=== PATIENT | male | born 1965 | race Caucasian/White ===

== ENCOUNTER 2019-07-11 07:07 | Day surgery (SDC) | payer BC ==
[2019-07-11] MEDS ORDERED: PROPOFOL 10 MG/ML VIAL IV ONE (07:08)
[2019-07-11] MEDS ORDERED: LIDOCAINE 2% MDV (20MG/ML) 20ML VIAL IV ONE (07:08)
--- NOTE | 2019-07-22 14:01 | Operative Note ---
DATE OF SERVICE: 07/11/2019. DATE OF SURGERY: 07/11/2019. REQUESTING PROVIDER: Jaiden Sky DO. SURGEON: Moshe Bradford MD. OPERATION: COLONOSCOPY. INDICATIONS FOR PROCEDURE: This is a 53-year-old male with average risk for colorectal cancer, who presented for screening colonoscopy. POSTOPERATIVE DIAGNOSES: 1. Left-sided colonic diverticulosis. 2. A 3 mm size polyp in the rectum that was removed by cold biopsy forceps. 3. Otherwise normal colon and terminal ileal mucosa. SEDATION: Sedation is per Anesthesia. Pulse oximetry was monitored throughout the duration of the procedure to maintain O2 saturation of 90% or greater. Supplemental oxygen was administered via nasal cannula. Cardiac and vital signs were monitored throughout the duration of the procedure and they were stable. PROCEDURE: The procedure of colonoscopy, risks and alternatives to the procedure, including the risks of bleeding and perforation among others, were explained to the patient. He voiced understanding and agreed to have the procedure done. Physical examination was performed and the patient was found stable for sedation. The patient was then placed in the left lateral position and sedation was initiated. Digital rectal exam was performed and showed small external hemorrhoids with no palpable rectal masses. A lubricated Olympus PCF1 80AL colonoscope was then inserted into the rectum and under direct visualization was advanced to the cecum without difficulty. The ileocecal valve and appendiceal orifice were identified and photographed. Colonic mucosa was carefully examined upon introduction of the colonoscope. There were no lesions noted. The ileocecal valve was intubated and terminal ileal mucosa was inspected for about 10 cm and it appeared normal. The colonoscope was then withdrawn while carefully reexamining the colonic mucosa surfaces. The cecum, ascending colon, transverse colon, descending colon, and sigmoid colon mucosa revealed no other lesions. In the rectum was a 3 mm size polyp that was noted and was removed by cold biopsy forceps. The retroflexion maneuver was performed, and no other lesions were noted. The bowel preparation was good. The colonoscope was then withdrawn, and the procedures were terminated. The patient tolerated the procedures well without immediate complications. He remained in stable vital signs and was transferred to the recovery room. PLAN AND RECOMMENDATIONS: 1. Patient is to be on a high-fiber diet. 2. He is to have repeat colonoscopy for surveillance in 5 or 10 years, depending on the histology of the polyps. Thank you for allowing me to participate in the care of your patient. KEVIN
== END 2019-07-11 09:00 | disposition home or self-care (01) ==
LOC: HOP 07:07
PROVIDERS: ATTEND Internal Medicine Gastroenterology
DX: Z12.11 Encounter for screening for malignant neoplasm of colon (principal); K62.1 Rectal polyp; K57.30 Diverticulosis of large intestine without perforation or abscess without bleeding